=== PATIENT | female | born 1960 | race Caucasian/White ===

== ENCOUNTER 2017-01-02 01:25 | Emergency (ER) | payer OTHER ==
[~2017-01-02] VITALS: Ht 162.6 cm; Wt 78.5 kg
[~2017-01-02 01:25] MED LIST: ASC250 PO; CHOL400T10 PO; LORA-441 PO; MELO-174 PO; METO25TA7 PO; NAPR275T83 PO
[2017-01-02 01:28] VITALS: Ht 162.6 cm; Wt 78.5 kg
[2017-01-02] MEDS ORDERED: SOD CHLORIDE 0.9% 1,000 ML IV STA (01:57)
[2017-01-02 02:22] LABS: ADD SCAN DIFF NO
[2017-01-02 02:24] LABS: BASOPHILS % 0.3 % (0.0-2.0); EOSINOPHILS # 0.2 10^3/ul (0.0-0.5); EOSINOPHILS % 3.3 % (0.0-7.0); HEMATOCRIT 39.5 % (37.0-47.0); HEMOGLOBIN 13.5 g/dl (12.0-16.0); LYMPHOCYTES # 2.3 10^3/ul (0.8-2.9); LYMPHOCYTES % 31.2 % (15.0-51.0); MEAN CORPUSCULAR HEMOGLOBIN 29.5 pg (29.0-33.0); MEAN CORPUSCULAR HGB CONC 34.2 g/dl (32.0-37.0); MEAN CORPUSCULAR VOLUME 86.4 fl (82.0-101.0); MEAN PLATELET VOLUME 10.1 fl (7.4-10.4); MONOCYTE # 0.5 10^3/ul (0.3-0.9); NEUTROPHIL # 4.2 10^3/ul (1.6-7.5); NEUTROPHILS % 57.6 % (39.0-77.0); PLATELET COUNT 278 10^3/UL (140-415); RED BLOOD COUNT 4.57 10^6/ul (4.20-5.40); RED CELL DISTRIBUTION WIDTH 13.1 % (11.5-14.5); WHITE BLOOD COUNT 7.2 10^3/ul (4.8-10.8)
[2017-01-02 02:37] LABS: ALBUMIN 4.9 g/dl (3.3-4.9)
[2017-01-02 02:38] LABS: CHLORIDE 103 mmol/L (97-110); INR 0.95; POTASSIUM 3.6 mmol/L (3.5-5.1); PROTIME 12.7 Sec (12.2-14.2); SODIUM 141 mmol/L (135-144)
[2017-01-02 02:39] LABS: PARTIAL THROMBOPLASTIN TIME 32.6 Sec (25.0-35.0)
[2017-01-02 02:40] LABS: ANION GAP 18 (8-16); ASPARTATE AMINO TRANSFERASE 20 IU/L (15-46); BILIRUBIN,INDIRECT 0.5 mg/dl (0-1.1); BILIRUBIN,TOTAL 0.5 mg/dl (0.2-1.3); CARBON DIOXIDE 24 mmol/L (21-31); CREATININE 0.52 mg/dl (0.44-1.00)
[2017-01-02 02:41] LABS: ALANINE AMINOTRANSFERASE 37 IU/L (13-69); ALBUMIN/GLOBULIN RATIO 1.68; ALKALINE PHOSPHATASE 108 IU/L (42-121); BLOOD UREA NITROGEN 18 mg/dl (7-20); CALCIUM 9.7 mg/dl (8.4-10.2); GLUCOSE 110 mg/dl (70-220); TOTAL PROTEIN 7.8 g/dl (6.1-8.1)
--- NOTE | 2017-01-02 02:45 | RADRPT ---
PROCEDURE: Chest. CLINICAL INDICATION: Chest pain. TECHNIQUE: Single frontal view of the chest was obtained. COMPARISON: 08/02/2016. FINDINGS: The cardiac silhouette is enlarged. The aortic arch is unremarkable. There is mild pulmonary venou s congestion. There is no focal consolidation or pleural effusion. There is no pneumothorax. IMPRESSION: Cardiomegaly and mild pulmonary venous congestion. .Kwabena Robles MD, MD Date Time Electronically viewed and signed by .Kwabena Robles MD, on 01/02/2017 02:44 .T/
[2017-01-02 02:50] LABS: B-TYPE NATRIURETIC PEPTIDE 52 PG/ML (0-125)
[2017-01-02 02:56] LABS: TROPONIN-I < 0.012 ng/ml (0.00-0.12)
--- NOTE | 2017-01-02 03:16 | ERD ---
ER Documentation Chief Complaint Date/Time DATE: 01/02/17 TIME: 03:14 Chief Complaint rapid heart beat x 2 hours HPI This is a very pleasant 56-year-old female had a rapid heartbeat for 2 hours. Patient has history of SVT. He was noted to be a heart rate of 176 at home. Upon arrival heart rate normalized. Denies any chest pain. Denies any fevers chills or shortness of breath. Denies any other current complaints. ROS All systems reviewed and are negative except as per history of present illness. Medications Home Meds Active Scripts Lorazepam* (Ativan*) 0.5 Mg Tablet, 0.5 MG PO Q8H Y for ANXIETY, #10 TAB Prov:ANANT GOINSLenin 08/02/16 Reported Medications Metoprolol Succinate* (Toprol XL*) 25 Mg Tab.sr.24h, 12.5 MG PO DAILY, #30 TAB 08/02/16 Meloxicam* (Mobic*) 7.5 Mg Tab, 7.5 MG PO DAILY, #30 TAB 08/02/16 Naproxen Sodium* (Naproxen*) 275 Mg Tablet, 275 MG PO QHS, TAB 08/02/16 Ascorbic Acid (Vitamin C) 250 Mg Tab, 250 MG PO DAILY, TAB 08/02/16 Cholecalciferol* (Vitamin D*) 400 Unit Tablet, 400 UNIT PO DAILY, TAB 08/02/16 Allergies Allergies: Coded Allergies: No Known Drug Allergies (Verified Allergy, Mild, 08/02/16) PMhx/Soc History of Surgery: Yes (CHANDANA HIP SURGERY 2005) Anesthesia Reaction: No Hx Neurological Disorder: No Hx Respiratory Disorders: No Hx Cardiac Disorders: No Hx Psychiatric Problems: No Hx Miscellaneous Medical Probl: Yes (ARTHRITIS ) Hx Alcohol Use: No Hx Substance Use: No Hx Tobacco Use: No Smoking Status: Unknown if ever smoked Physical Exam Vitals Vital Signs Date Time Temp Pulse Resp B/P Pulse Ox O2 Delivery O2 Flow Rate FiO2 01/02/17 01:28 97.1 166 17 129/92 100 Physical Exam Const: [] Head: Atraumatic Eyes: Normal Conjunctiva ENT: Normal External Ears, Nose and Mouth. Neck: Full range of motion..~ No meningismus. Resp: Clear to auscultation bilaterally Cardio: Regular rate and rhythm, no murmurs Abd: Soft, non tender, non distended. Normal bowel sounds Skin: No petechiae or rashes Back: No midline or flank tenderness Ext: No cyanosis, or edema Neur: Awake and alert Psych: Normal Mood and Affect Result Diagram: 01/02/179 01/02/17 0159 Results 24 hrs Laboratory Tests Test 01/02/17 01:59 White Blood Count 7.210^3/ul Red Blood Count 4.5710^6/ul Hemoglobin 13.5g/dl Hematocrit 39.5% Mean Corpuscular Volume 86.4fl Mean Corpuscular Hemoglobin 29.5pg Mean Corpuscular Hemoglobin Concent 34.2g/dl Red Cell Distribution Width 13.1% Platelet Count 40053^3/UL Mean Platelet Volume 10.1fl Neutrophils % 57.6% Lymphocytes % 31.2% Monocytes % 7.0% Eosinophils % 3.3% Basophils % 0.3% Nucleated Red Blood Cells % 0.0/100WBC Neutrophils # 4.210^3/ul Lymphocytes # 2.310^3/ul Monocytes # 0.510^3/ul Eosinophils # 0.210^3/ul Basophils # 0.010^3/ul Nucleated Red Blood Cells # 0.010^3/ul Prothrombin Time 12.7Sec Prothrombin Time Ratio 1.0 INR International Normalized Ratio 0.95 Activated Partial Thromboplast Time 32.6Sec Sodium Level 141mmol/L Potassium Level 3.6mmol/L Chloride Level 103mmol/L Carbon Dioxide Level 24mmol/L Anion Gap 18 Blood Urea Nitrogen 18mg/dl Creatinine 0.52mg/dl Glucose Level 110mg/dl Calcium Level 9.7mg/dl Total Bilirubin 0.5mg/dl Direct Bilirubin 0.00mg/dl Indirect Bilirubin 0.5mg/dl Aspartate Amino Transf (AST/SGOT) 20IU/L Alanine Aminotransferase (ALT/SGPT) 37IU/L Alkaline Phosphatase 108IU/L Troponin I < 0.012ng/ml B-Type Natriuretic Peptide 52PG/ML Total Protein 7.8g/dl Albumin 4.9g/dl Globulin 2.90g/dl Albumin/Globulin Ratio 1.68 Current Medications Medications (Trade) Dose Ordered Sig/Karma Route PRN Reason Start Time Stop Time Status Last Admin Dose Admin Sodium Chloride (NS) 1,000 ml @ 1,000 mls/hr Q1H STAT IV 01/02/17 01:57 01/02/17 02:56 DC 01/02/17 02:09 Procedures/MDM EKG: Rate/Rhythm: [Normal Sinus Rhythm] QRS, ST, T-waves: [No changes consistent w/ acute ischemia] Impression: [No evidence of ischemia or arrhythmia] Chest X-ray 1V Interpreted by me: Soft Tissue: No acute abnormalities Bones: No acute abnormalities Mediastinum/Cardiac Silhouette/Lungs: [No acute abnormalities] Patient's thoracic symptoms have stabilized while in the department and are stable for outpatient follow up. Exam and work up not consistent w/ ischemia, arrhythmia, PE or dissection. Patient likely has recurrent SVT. No evidence of SVT here. Patient was placed on Lopressor to be taken twice daily. Follow-up with PCP tomorrow. Return for any return of symptoms. Departure Diagnosis: Primary Impression: Palpitations Condition: Stable ANANT GOINS Jan 02, 2017 03:16
[2017-01-02] MEDS ORDERED: METO-429 PO (03:17)
[2017-01-02 03:24] VITALS: BP 104/78; PULSE 98; RESP 16; TEMP 97.9
== END 2017-01-02 03:37 | disposition home or self-care (01) ==
LOC: E/R 01:25
DX: R00.2 Palpitations (principal); R07.9 Chest pain, unspecified; Z96.643 Presence of artificial hip joint, bilateral
CPT/HCPCS: 71010; 80053; 83880; 84484; 85025; 85610; 85730; 93005; J7030; Z7502

== ENCOUNTER 2019-03-15 11:16 | Emergency (ER) | payer OTHER ==
[~2019-03-15] VITALS: Ht 162.6 cm; Wt 97.8 kg
[~2019-03-15 11:16] MED LIST changes: -ASC250 PO; +ASCO250T96 PO; +METO-335 PO; +METO-429 PO; -METO25TA7 PO
[2019-03-15 11:25] VITALS: BP 101/57; PULSE 66; RESP 20; Ht 162.6 cm; Wt 97.8 kg
--- NOTE | 2019-03-15 14:42 | ERD ---
ER Documentation Chief Complaint Chief Complaint SOB, MALAISE, FATIGUE STARTING YESTERDAY ROS All systems reviewed and are negative except as per history of present illness. Medications Home Meds Active Scripts Metoprolol Tartrate* (Lopressor*) 50 Mg Tab, 50 MG PO BID, #60 TAB Prov:ANANT GOINS. 01/02/17 Lorazepam* (Ativan*) 0.5 Mg Tablet, 0.5 MG PO Q8H PRN for ANXIETY, #10 TAB Prov:ANANT GOINS. 08/02/16 Reported Medications Metoprolol Succinate* (Toprol XL*) 25 Mg Tab.sr.24h, 12.5 MG PO DAILY, #30 TAB 08/02/16 Meloxicam* (Mobic*) 7.5 Mg Tab, 7.5 MG PO DAILY, #30 TAB 08/02/16 Naproxen Sodium* (Naproxen*) 275 Mg Tablet, 275 MG PO QHS, TAB 08/02/16 Ascorbic Acid (Vitamin C) 250 Mg Tab, 250 MG PO DAILY, TAB 08/02/16 Cholecalciferol* (Vitamin D*) 400 Unit Tablet, 400 UNIT PO DAILY, TAB 08/02/16 Allergies Allergies: Coded Allergies: No Known Drug Allergies (Verified Allergy, Mild, 08/02/16) PMhx/Soc History of Surgery: Yes (CHANDANA HIP SURGERY 2005) Anesthesia Reaction: No Hx Neurological Disorder: No Hx Respiratory Disorders: No Hx Cardiac Disorders: No Hx Psychiatric Problems: No Hx Miscellaneous Medical Probl: Yes (ARTHRITIS ) Hx Alcohol Use: No Hx Substance Use: No Hx Tobacco Use: No Smoking Status: Never smoker Physical Exam Vitals Vital Signs Date Temp Pulse Resp B/P (MAP) Pulse Ox O2 O2 Flow FiO2 Time Delivery Rate 03/15/19 97.8 66 20 101/57 99 11:25 (72) Physical Exam Const: No acute distress Head: Atraumatic Eyes: Normal Conjunctiva ENT: Normal External Ears, Nose and Mouth. Neck: Full range of motion. No meningismus. Resp: Clear to auscultation bilaterally Cardio: Regular rate and rhythm, no murmurs Abd: Soft, non tender, non distended. Normal bowel sounds Skin: No petechiae or rashes Back: No midline or flank tenderness Ext: No cyanosis, or edema Neur: Awake and alert Psych: Normal Mood and Affect Result Diagram: 03/15/19 1320 03/15/19 1319 Results 24 hrs Laboratory Tests Test 03/15/19 13:19 03/15/19 13:20 Urine Color STRAW Urine Clarity CLEAR Urine pH 6.0 Urine Specific Ephraim 1.009 Urine Ketones NEGATIVE mg/dL Urine Nitrite NEGATIVE mg/dL Urine Bilirubin NEGATIVE mg/dL Urine Urobilinogen NEGATIVE mg/dL Urine Leukocyte Esterase 1+ Shine/ul Urine Microscopic RBC 1 /HPF Urine Microscopic WBC 2 /HPF Urine Squamous Epithelial Cells FEW /HPF Urine Hemoglobin 1+ mg/dL Urine Glucose NEGATIVE mg/dL Urine Total Protein NEGATIVE mg/dl Sodium Level 144 mmol/L Potassium Level 4.6 mmol/L Chloride Level 105 mmol/L Carbon Dioxide Level 27 mmol/L Anion Gap 12 Blood Urea Nitrogen 12 mg/dl Creatinine 0.40 mg/dl Est Glomerular Filtrat Rate mL/min > 60 mL/min Glucose Level 104 mg/dl Calcium Level 9.8 mg/dl Total Bilirubin 0.4 mg/dl Direct Bilirubin 0.00 mg/dl Indirect Bilirubin 0.4 mg/dl Aspartate Amino Transf (AST/SGOT) 24 IU/L Alanine Aminotransferase (ALT/SGPT) 34 IU/L Alkaline Phosphatase 95 IU/L Troponin I < 0.012 ng/ml B-Type Natriuretic Peptide 131 PG/ML Total Protein 7.4 g/dl Albumin 4.6 g/dl Globulin 2.80 g/dl Albumin/Globulin Ratio 1.64 White Blood Count 7.5 10^3/ul Red Blood Count 4.75 10^6/ul Hemoglobin 13.5 g/dl Hematocrit 41.6 % Mean Corpuscular Volume 87.6 fl Mean Corpuscular Hemoglobin 28.4 pg Mean Corpuscular Hemoglobin Concent 32.5 g/dl Red Cell Distribution Width 13.0 % Platelet Count 287 10^3/UL Mean Platelet Volume 10.2 fl Immature Granulocytes % 0.500 % Neutrophils % 60.8 % Lymphocytes % 28.0 % Monocytes % 7.4 % Eosinophils % 2.9 % Basophils % 0.4 % Nucleated Red Blood Cells % 0.0 /100WBC Immature Granulocytes # 0.040 10^3/ul Neutrophils # 4.5 10^3/ul Lymphocytes # 2.1 10^3/ul Monocytes # 0.6 10^3/ul Eosinophils # 0.2 10^3/ul Basophils # 0.0 10^3/ul Nucleated Red Blood Cells # 0.0 10^3/ul Departure Diagnosis: Primary Impression: Weakness Condition: Fair Patient Instructions: Generalized Weakness, Weakness, Unk Cause Referrals: [facility] YOU HAVE RECEIVED A MEDICAL SCREENING EXAM AND THE RESULTS INDICATE THAT YOU DO NOT HAVE A CONDITION THAT REQUIRES URGENT TREATMENT IN THE EMERGENCY DEPARTMENT. FURTHER EVALUATION AND TREATMENT OF YOUR CONDITION CAN WAIT UNTIL YOU ARE SEEN IN YOUR DOCTORS OFFICE WITHIN THE NEXT 1-2 DAYS. IT IS YOUR RESPONSIBILITY TO MAKE AN APPOINTMENT FOR FOLOW-UP CARE. IF YOU HAVE A PRIMARY DOCTOR --you should call your primary doctor and schedule an appointment IF YOU DO NOT HAVE A PRIMARY DOCTOR YOU CAN CALL OUR PHYSICIAN REFERRAL HOTLINE AT IF YOU CAN NOT AFFORD TO SEE A PHYSICIAN YOU CAN CHOSE FROM THE FOLLOWING [facility] [address] [facility]. [facility] [address] [facility] [address] [facility] [address] [facility]. [facility] [address] [facility]. [facility] [address] Additional Instructions: Call your primary care doctor TOMORROW for an appointment during the next 1-2 days.See the doctor sooner or return here if your condition worsens before your appointment time. 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
== END 2019-03-15 14:50 | disposition home or self-care (01) ==
LOC: FTE 11:16
DX: R53.1 Weakness (principal)
CPT/HCPCS: 71046; 80053; 81001; 83880; 84484; 85025; 93005